=== PATIENT | female | born 1970 | race Caucasian/White ===

== ENCOUNTER 2024-11-23 13:52 | Inpatient (IN) | payer MEDICARE, OTHER, SELFPAY ==
[2024-11-23] VITALS (8 sets, daily range): BP systolic 102–138; BP diastolic 62–122
--- NOTE | 2024-11-23 07:45 | ED.GENMED ---
History of Present Illness
General
Chief Complaint: Abdominal Pain
Source: patient
Exam Limitations: none
Time Seen by Provider: 11/23/24 07:30
Nursing documentation reviewed up to this point in time: agreed with
History of Present Illness
History of Present Illness:
54-year-old female presenting from nursing facility with concerns of right upper quadrant abdominal pain since last night with associated vomiting. Also has had abdominal distention. Feels like she may be backed up with stool. Had a history of 2
C-sections and previous hernia repair. Denies any specific chest pain shortness of breath fevers.
Past History
Past History
ED Past Medical History: Other (Osteoarthritis)
Social History
Tobacco: Non-smoker
Review of Systems
Review of Systems
Allergies reviewed?: Yes
All Other Systems: ROS reviewed and negative except as documented in HPI and ROS
Phy Exam
Physical Exam
Physical Exam:
GENERAL: Alert , in no apparent distress
EYE: pupils equal and reactive
NECK: Supple, no significant adenopathy.
ENT: o/p clr, mmm.
CARDIAC: Regular rate and rhythm .
LUNGS: Clear breath sounds bilaterally, no acute respiratory distress, no wheezes/rales/rhonchi
ABDOMEN: Diffusely tender distended abdomen
NEUROLOGICAL: Alert and oriented, no focal neuro deficits
SKIN: Warm and dry, skin intact.
MUSCULOSKELETAL: No edema, well perfused.
PSYCH: Normal and appropriate interaction.
Course
Orders/Labs/Results
Orders:
Orders
11/23/24 07:31
Electrocardiogram (*1) Urgent
Reason for Study: Abdominal Pain
11/23/24 07:32
EKG- Treatment ONCE
11/23/24 07:35
CMP [Comprehensive Metabolic Panel] Urgent
Complete Blood Count/With Diff Urgent
Lipase Urgent
11/23/24 07:38
Add On- LAB Urgent
Tests Added?: lipase
11/23/24 07:43
CT Abd/Pel (IV only)-DH only Urgent
Comment:
Reason For Exam: diffuse abd pain
Acetaminophen 1000MG/100Ml [Ofirmev] 1,000 mg in 100 ml IV ONCE
Acetaminophen IV Indication:: ED Narcotic History-ONCE
Ondansetron Injectable [Zofran] 4 mg IV NOW STA
11/23/24 09:01
HYDROmorphone [Dilaudid] 1 mg IV NOW STA
11/23/24 11:10
US Abdomen Complete/Upper Urgent
Comment:
Reason For Exam: ruq pain distended GB
11/23/24 13:02
Admit/Transfer Patient As Directed
Co-Sign Provider:
Level of Care: Inpatient admission
Assign to:: Medical/Surgical
Physician / Group: audra echavarria
Diagnosis: symptomatic bilary colic
Reason for Hospitalization: symptomatic biliary colic
Expected length of stay greater than two midnights?: Yes
ELOS- Estimated Length of Stay in days: 3
I certify the patient meets the requirements for IP care: Yes
PRN Pain Medication Management As Directed
May give lesser potent ordered pain med per pt: Yes
preference::
Protocol:: Medication orders for pain may be administered in a
manner that supports deferring to patient preference
when the pt is:
- Requesting an ordered lesser potent pain medication.
Least to most potent pain medications are defined
as: acetaminophen < NSAID < tramadol < opioids
(morphine, oxycodone, hydromorphone).
- Requesting a lesser dose of the same medication IF
ORDERED.
- Requesting a less intrusive route of administration
if both routes are prescribed by the provider (PO <
IV).
11/23/24 13:03
Code Status As Directed
Resuscitation Status: Full Code
Abnormal Lab Results
11/23/24
07:35
WBC 12.8 H 10^3/uL
(4.8-10.8)
MCHC 32.6 L g/dL
(33.0-37.0)
Absolute Neuts (auto) 11.1 H 10^3/uL
(1.4-6.5)
Absolute Lymphs (auto) 1.0 L 10^3/uL
(1.2-3.4)
Absolute Monos (auto) 0.7 H 10^3/uL
(0.1-0.6)
Neutrophils % 86.6 H %
(42.2-75.2)
Lymphocytes % 7.8 L %
(20.5-51.1)
BUN 18 H mg/dl
(7-17)
Glucose 153 H mg/dl
(70-99)
Alkaline Phosphatase 147 H U/L
(38-126)
11/23/24 07:35
11/23/24 07:35
Vital Signs
Initial and Last Documented VS:
Initial Vital Signs
BP
103/88
11/23/24 07:29
Last Documented Vital Signs
Temp Pulse Resp BP Pulse Ox
99 F 110 25 138/122 93
11/23/24 07:30 11/23/24 11:15 11/23/24 11:15 11/23/24 11:10 11/23/24 11:15
MDM/Problems Addressed
MDM/Problems Addressed:
54-year-old female presenting to the emergency department today with concerns of mainly right upper quadrant abd pain but on my examination diffuse abdominal pain with distention. Mildly tachycardic on arrival otherwise vital signs are normal.
Here concerning she has somewhat diffuse abdominal pain to start CT scan was ordered. CT scan showed gallbladder distention but no obvious wall thickening recommending ultrasound. Ultrasound performed that showed distention once again but no
obvious thick. Labs showed elevation in alk phos otherwise no emergent findings other than slight elevation of the white count of 12.8. The mildly tachycardic and still with ongoing pain despite opioid medication plan to admit for further
monitoring and assessment.
*Critical Care Note
Total Time (30-74mins, 75-104mins- exclusive of procedures): Not Applicable
ED Attending Note
-
Portions of this chart may have been created with voice recognition software.� Occasional wrong word or��sound alike� substitutions may have occurred due to the inherent limitations of voice recognition software.
Discharge Plan
Departure
Patient Disposition: Admit
Date of Disposition: 11/23/24
Time of Disposition: 13:58
Admit to: Med/Surg
Admit to doctor: Patiencey
Presentation/result/management discussed w/ accepting MD/DO: Hospitalist
Patient with high blood pressure during this ER visit?: No
Condition: Good
Covid-19: Not Applicable
Discharge Problem:
Abdominal pain, RUQ
Interventions
Interventions:
*Risk Screen - Suicide Last Done: 11/23/24 07:30
*General Assessment Last Done: 11/23/24 07:30
*Neglect/Abuse Screening Last Done: 11/23/24 07:30
*ED- Fall Risk Assessment Last Done: 11/23/24 07:53
*ED COVID-19 Vaccine History Last Done: 11/23/24 07:53
MP-Xpvrji-Jgomroxann Assessment Last Done: 11/23/24 07:53
[2024-11-23] MEDS: ZOFRAN 4 MG IV (07:47)
[2024-11-23] MEDS: OFIRMEV 100 IV (07:47)
[2024-11-23 08:07] LABS: ALT (SGPT) 19 U/L (0-35); AST (SGOT) 21 U/L (14-36); Albumin 4.3 g/dl (3.5-5.0); Alkaline Phosphatase 147 U/L (38-126); Blood Urea Nitrogen 18 mg/dl (7-17); Calcium 9.6 mg/dl (8.4-10.2); Carbon Dioxide 26 mmol/L (22-30); Chloride 106 mmol/L (98-107); Glucose 153 mg/dl (70-99); Potassium 3.7 mmol/L (3.5-5.1); Sodium 143 mmol/L (135-145); Total Bilirubin 0.6 mg/dl (0.2-1.3); Total Protein 6.8 g/dl (6.3-8.2); eGFR > 60.00
[2024-11-23 08:46] LABS: % Basophils 0.2 % (0-2); % Eosinophils 0.1 % (0-6); % Immature Granulocytes 0.2 % (0-0.5); % Lymphocytes 7.8 % (20.5-51.1); % Monocytes 5.1 % (1.7-9.3); % Neutrophils 86.6 % (42.2-75.2); Absolute Monocytes 0.7 10^3/uL (0.1-0.6); Absolute Neutrophils 11.1 10^3/uL (1.4-6.5); Hemoglobin 12.7 g/dL (12.0-16.0); Mean Corp Hgb Conc. 32.6 g/dL (33.0-37.0); Mean Corpuscular Hgb 30.2 pg (27.0-31.0); Mean Corpuscular Volume 92.9 fL (81.0-99.0); Mean Platelet Volume 9.6 fL (7.4-10.4); Nucleated Red Blood Cells % 0 %; Platelet Count 328 10^3/uL (130-400); Red Cell Dist. Width 13.6 % (11.5-14.5); White Blood Cell Count 12.8 10^3/uL (4.8-10.8)
[2024-11-23] MEDS: DILAUDID 1 MG IV (09:13)
[2024-11-23 11:54] LABS: Lipase 74 U/L (23-300)
--- NOTE | 2024-11-23 12:34 | HPS.HSE ---
Family Physician
-
Family Physician: Bry Nava, DO
Chief Complaint
-
abdominal pain
History of Present Illness
54-year-old female with PMH for hypothyroidism, right LE DVT presented with upper quadrant pain since Saturday. She was diagnosed with UTI and yeast infection on Saturday. she finished the course of Cipro. she was having abdominal pain since then but
she thought it could be from yeast and UTI. yesterday the pain got intense, worse with deep breath. yesterday she noticed distended abdomen and she vomited all night. denied fever, chills,chest pain, sob. denied QUINTANILLA, dizzy or syncope.denied dysuria
or hematuria.
CT with gallstones. patient received Tylenol, Dilaudid, Zofran in ER. admitting for further management.
Patient is from [facility]. she is getting physical therapy for her right hip pain
Medical History
Past Medical History
Past Medical History: Reports Other
Additional Past Medical History:
Hypothyroidism
Obesity
Depression
Past Surgical History: Reports Other
Additional Past Surgical History:
exploratory laparotomy, primary repair of umbical hernia
Tonsillectomy
Social History
Tobacco: Non-smoker
Alcohol: Occasional
Drug: None
Living: Other ([facility])
Family History
Family History: Not pertinent
Allergies / Home Medications
Allergies reflects when Allergies were last updated in [employer].
Home Medications with original date entered in [employer]
Allergy/Medication List:
Allergies
Allergy/AdvReac Type Severity Reaction Status Date / Time
No Known Allergies Allergy Verified 11/23/24 07:33
Home Medications
albuterol sulfate 90 mcg/actuation aerosol inhaler 2 puff inhalation R Q4HPRN PRN SOB, wheezing ##1 11/26/21
amlodipine 10 mg tablet 10 mg PO DAILY #30 tabs 11/26/21
apixaban 5 mg tablet (Eliquis) 5 mg PO BID #60 tabs 11/26/21
lisinopril 5 mg tablet 5 mg PO HS #30 tabs 11/26/21
oxycodone 5 mg tablet 5 mg PO Q4HPRN PRN breakthrough/severe pain #15 tabs 11/28/21
polyethylene glycol 3350 17 gram/dose oral powder 17 gm PO DAILY ##1 11/28/21
acetaminophen 325 mg tablet 650 mg (2 x 325 mg) PO Q4HPRN PRN mild pain #1 tab 12/01/21
ibuprofen 200 mg tablet 400 - 600 mg (2 - 3 x 200 mg) PO Q6HPRN PRN moderate pain #1 tab 12/01/21
Review of Systems
-
Constitutional: Reports No Symptoms
EENT: Reports No Symptoms
Respiratory: Reports No Symptoms
Cardiac: Reports No Symptoms
Abdomen/GI: Reports Abdominal Pain
: Reports No Symptoms
Musculoskeletal: Reports No Symptoms
Skin: Reports No Symptoms
Neurological: Reports No Symptoms
Endocrine: Reports No Symptoms
Hematologic/Lymphatic: Reports No Symptoms
Psych: Reports No Symptoms
Physical Exam
Vital Signs
Vital Signs
Temp Pulse Resp BP Pulse Ox
99 F 110 25 138/122 93
11/23/24 07:30 11/23/24 11:15 11/23/24 11:15 11/23/24 11:10 11/23/24 11:15
Physical Exam
General: Well Developed, Well Nourished and No Apparent Distress
HEENT: NormoCephalic, Moist mucous membranes and Atraumatic
Respiratory: Clear
Cardiac: S1/S2 and Regular Rhythm; No Murmur or Rub
GI: Soft, Non Tender, Non Distended and Normal Bowel Sounds; No Organomegaly
Rectal: Deferred by Provider
Musculoskeletal: No Clubbing, No Cyanosis and No Edema
Skin: No Rash
Neuro: AO x 3 and Nonfocal/grossly intact
Psych: Calm
Laboratory Results
-
11/23/24 07:35
11/23/24 07:35
Laboratory Results
Total Bilirubin 0.6 mg/dl (0.2-1.3) 11/23/24 07:35
AST 21 U/L (14-36) 11/23/24 07:35
ALT 19 U/L (0-35) 11/23/24 07:35
Alkaline Phosphatase 147 U/L (38-126) H 11/23/24 07:35
Lipase 74 U/L (23-300) 11/23/24 07:35
Data Reviewed
-
CT Scan: Report Reviewed by me
Lab Data: Labs Reviewed by me
Impression/Plan
-
# Right upper quadrant pain likely symptomatic biliary colic
- CT with Gallbladder is mildly distended. Multiple gallstones are seen within the gallbladder. No significant gallbladder wall thickening or adjacent inflammatory change. Acute cholecystitis is considered unlikely, however if clinically suspected,
right upper quadrant ultrasound may be helpful.
2. Mild fecal retention suggestive of constipation. No CT evidence of intestinal obstruction.
3. Left-sided nephrolithiasis without hydronephrosis. Stones have increased in size compared to prior CT dated 11/21/2021.
- Ultrasound shows Multiple gallstones are seen within the gallbladder neck. Gallbladder is mildly dilated. No significant gallbladder wall thickening, and negative sonographic Gunn's sign. Overall, findings are not suggestive of acute
cholecystitis, however symptomatic biliary colic may still be present. HIDA scan may be helpful if the diagnosis is in doubt clinically.
2. No biliary ductal dilation.
3. Pancreas, spleen, and abdominal vessels were not visualized due to overlying bowel gas, however were within normal limits on today's CT.
- WBCs 12.8
-Will keep patient n.p.o.
-Surgery consulted
-Dilaudid as needed for pain
-Zofran prn for N/V
#DVT right LE
-hold eliquis
-last dose last night
#Hypothyroidism
-Synthroid continued
#anxiety/ADD
-Wellbutrin,amitriptyline continued
#neuropathy/right hip pain
-gabapentin,Flexeril continued
-PT/OT
#essential htn
-losartan continued with hold parameter
#GERD
-PPI continued
#DVT prophylaxis
-scd
#CODE status
-full code
--- NOTE | 2024-11-23 13:00 | W.PN.UPDATE ---
Update Note
Progress Note Update
This note serves as an addendum to the H&P by new accounts clerk RAHEEM Corinna IGLESIAS
HPI
54F [facility] at [facility], HX HX incarcerated hernia repair , post op DVT seen at ER for concerns of RUQ abdominal pain for 1 week , vomited this AM with abdominal distention prompted to evalaute at ER. HX recent UTI s/p ciprofloxacin. may be backed up
with stool.
HX 2 C-sections and previous hernia repair.
Denies any specific chest pain shortness of breath fevers.
Reviewed VS:
Selected VSS
11/23/24
07:30
Temp 99 F
Pulse 100
Resp Rate 18
Blood pressure 103/88
SaO2 97
Oxygen Mode of Delivery Room air
Laboratory Tests
11/23/24
07:35
WBC 12.8 H
BUN 18 H
Creatinine 0.7
eGFR > 60.00
Glucose 153 H
AST 21
ALT 19
Alkaline Phosphatase 147 H
Lipase 74
PE
Gen: Not toxic , obese
HEENT:anicteric, dry OM , lips and tougue
Neck:supple
Lungs:CTA
Cor:RRR
Abdomen: Tender RHC with deep palpation , No guarding
EMAIL OPERATIONS MANAGER: AAO3
MS:no edema , dry slin at [facility]
Psych:nl mood and affect
US Abdomen Complete/Upper
1. Multiple gallstones are seen within the gallbladder neck.
Gallbladder is mildly dilated.
No significant gallbladder wall thickening, and negative sonographic Gunn's sign.
Overall, findings are not suggestive of acute cholecystitis, however symptomatic biliary colic may still be present. HIDA scan may be helpful if the diagnosis is in doubt clinically.
2. No biliary ductal dilation.
3. Pancreas, spleen, and abdominal vessels were not visualized due to overlying bowel gas, however were within normal limits on today's CT.
CT Abd/Pel (IV only)-DH only
1. Gallbladder is mildly distended.
Multiple gallstones are seen within the gallbladder.
No significant gallbladder wall thickening or adjacent inflammatory change.
Acute cholecystitis is considered unlikely, however if clinically suspected, right upper quadrant ultrasound may be helpful.
2. Mild fecal retention suggestive of constipation. No CT evidence of intestinal obstruction.
3. Left-sided nephrolithiasis without hydronephrosis. Stones have increased in size compared to prior CT dated 11/21/2021.
ASSESSMENT & PLAN
Symptomatic biliary colic with NEG sono evidence for acute cholecystitis
[place] [facility] [place] dilation
- nl LFTs, nl Lipase
- associated leucocytosis
- Hold Eliquis - last dose was last night
- NPO and IVF NS 80/H
- PRN Dilaudid analgesia
- PRN anti emetics
- GS consulted ; not indicated for HIDA
Recent UTI at [facility]
S/P PO Cipro floxacin
Benign HTN
- c/w Amlodipine , Lisinopril
Mild fecal retention suggestive of constipation but had nl BM this am
No CT evidence of intestinal obstruction.
- To consider laxatives pending Surgery evalaution
HX eliquis for HX post op Rt April DVT following repair of incarcerated hernia ( 2021)
- Hold Eliquis
DVT Px: SCD
Full code
IP MS
--- NOTE | 2024-11-23 13:00 | PHANOTE ---
med rec note- called patient [facility] at [phone], paperwork missing medication list just a blank sheet
--- NOTE | 2024-11-23 13:26 | CON.GS ---
Addendum entered and electronically signed by Bry Sultana MD 11/23/24 17:07:
I saw and examined the patient independently.
The resident's documentation was reviewed and I agree with the note, assessment and plan except where noted below.
Comment: This is a 54-year-old female with a history of morbid obesity, DVT (on Eliquis last dose last night), osteoarthritis, strangulated umbilical hernia s/p primary repair (2021) who presents with a 1 day history of right upper quadrant pain in
the setting of a recent UTI. Exam, imaging, blood work all consistent with acute cholecystitis.
Will plan for laparoscopic cholecystectomy in 24 to 48 hours for Eliquis washout. Given obesity, would prefer a robotic approach.
Okay for clears, IV fluids, IV antibiotics.
Risks/Benefits/Alternatives, expected postoperative course and possible complications (bleeding, infection, injury to surrounding structures, acute/chronic pain) discussed at length. Patient wishes to proceed with surgery. All questions answered.
Verbal consent obtained.
I spent 65 minutes in total for the care of this patient today including direct patient care and counseling, reviewing labs, imaging, coordination of care, as well as documentation.
Original Note:
Medical History
-
Chief Complaint: Abdominal pain
History of Present Illness:
64-year-old female with history of obesity, DVT 2019, osteoarthritis, hypothyroidism, depression as well as ADD, strangulated umbilical hernia status post repair 11/2021, peripheral neuropathy, right-sided breast cyst presents to ED with nausea,
vomiting, abdominal pain. On 11/14, patient started to have lower abdominal pain. UA revealed UTI. She was started on Cipro floxacillin by MANAGER CASE. Lower ab pain improved as well as burning with urination, however her upper abdominal pain persisted
with more persistent pain in RUQ and started to radiate into the lower back. Last night, after eating hot dog, patient noticed severe right upper quadrant pain with subsequent nausea and vomiting. The vomiting continued overnight to which point she
decided to come into the ED. She denies any fevers, chills, diarrhea. Her last bowel was yesterday. She has been trying to lose weight and has lost about 40 pounds over the last year.
In the ED, blood pressure 108/97, heart rate 110, respiratory rate 25, O2 saturation 93% on room air, temp 99 Fahrenheit. Alk phos 127, WBC 12.8 with left shift. Abdomen/pelvis CT revealed mildly distended goal bladder with multiple gallstones
without signs of acute cholecystitis. Follow-up abdominal ultrasound revealed similar findings. She received Zofran, hydromorphone and IV acetaminophen in the ED. General surgery was consulted for evaluation of biliary colic, cholelithiasis,
suspected acute cholecystitis.
Past Medical History
Past Medical History: Other (DVT, osteoarthritis, hypothyroidism, depression, ADD, peripheral neuropathy, Breast cyst)
Past Surgical History: Other (Exploratory laparotomy with umbilical hernia repair/2021, times 09/1999, tonsillectomy)
Social History
Tobacco: Non-Smoker
Alcohol: Occasional
Drug: None
Personal:
Living: Assisted Living
Family History
Family History: Other (Paternal grandmother breast cancer)
Allergies / Home Medications
Allergy/AdvReac Type Severity Reaction Status Date / Time
No Known Allergies Allergy Verified 11/23/24 07:33
�Medication �Instructions �Recorded �Confirmed �Type
albuterol sulfate 90 mcg/actuation 2 puff inhalation R Q4HPRN PRN 11/26/21 Rx
aerosol inhaler SOB, wheezing ##1
amlodipine 10 mg tablet 10 mg PO DAILY #30 tabs 11/26/21 Rx
apixaban 5 mg tablet (Eliquis) 5 mg PO BID #60 tabs 11/26/21 Rx
lisinopril 5 mg tablet 5 mg PO HS #30 tabs 11/26/21 Rx
oxycodone 5 mg tablet 5 mg PO Q4HPRN PRN 11/28/21 Rx
breakthrough/severe pain #15 tabs
polyethylene glycol 3350 17 17 gm PO DAILY ##1 11/28/21 Rx
gram/dose oral powder
acetaminophen 325 mg tablet 650 mg (2 x 325 mg) PO Q4HPRN PRN 12/01/21 Rx
mild pain #1 tab
ibuprofen 200 mg tablet 400 - 600 mg (2 - 3 x 200 mg) PO 12/01/21 Rx
Q6HPRN PRN moderate pain #1 tab
Review of Systems
-
History Source: Patient
EENT: No Symptoms
Respiratory: No Symptoms
Cardiac: No Symptoms
Abdomen/GI: Abdominal Pain
: No Symptoms
Neurological: No Symptoms
A 10 point review of systems was completed, and was negative except as per HPI.
Physical Exam
Vital Signs
Temp Pulse Resp BP Pulse Ox
99 F 110 25 138/122 93
11/23/24 07:30 11/23/24 11:15 11/23/24 11:15 11/23/24 11:10 11/23/24 11:15
11/22/24 11/23/24 11/24/24
06:59 06:59 06:59
Actual Weight 129.1 kg
Lab Results
11/23/24 07:35
11/23/24 07:35
WBC 12.8 10^3/uL (4.8-10.8) H 11/23/24 07:35
Hgb 12.7 g/dL (12.0-16.0) 11/23/24 07:35
Hct 39.0 % (37.0-47.0) 11/23/24 07:35
Plt Count 328 10^3/uL (130-400) 11/23/24 07:35
Abs Immat Gran (auto) 0.0 10^3/uL (0-0.05) 11/23/24 07:35
Neutrophils % 86.6 % (42.2-75.2) H 11/23/24 07:35
Physical Exam
General: No Apparent Distress
Respiratory: Clear
Cardiac: S1/S2 and Regular Rhythm
GI: Tender, Distended and Obese
Skin: Warm and Dry
Neuro: AO x 3
Assessment / Plan
-
54 y/o female presents with acute cholecystitis.
AFVSS
Ab distended, tender, tympanic, grewal (+), normal bowel sounds
Healed surgical scar from umbilical hernia repair midline
#Acute cholecystitis
--WBC 12.8 with left shift, tenderness with palpation, grewal (+), imaging consistent with cholelithiasis, enlarged gallbladder
--Last dose of Eliquis last night 7pm
--Plan for OR tmrw
--Zosyn
--Fluids
--Allow clears as not currently nauseous, NPO at midnight
[2024-11-23] MEDS: ZOSYN 100 IV (15:24)
[2024-11-23] MEDS: NSS 1000 IV (17:30)
[2024-11-23] MEDS: TYLENOL 650 MG PO (17:31)
--- NOTE | 2024-11-23 18:06 | PTCARENOTE ---
Pt admitted to [facility] from ED, pulled over from stretcher to bed. AAOx3. Pt febrile with T 100.4, PRN tylenol given. Oriented pt to room and plan of care. Call giron within reach.
[2024-11-23] MEDS: DILAUDID 0.5 MG IV (18:14)
[2024-11-23] MEDS: LAC HYDRIN, AM LACTIN LOTION 1 APPLIC TOPICAL (20:07)
[2024-11-23] MEDS: NEURONTIN 300 MG PO (20:07)
[2024-11-23] MEDS: PROTONIX 40 MG PO (21:40)
[2024-11-23] MEDS: FLEXERIL 10 MG PO (21:40)
[2024-11-23] MEDS: LIPITOR 10 MG PO (21:40)
[2024-11-23] MEDS: SYNTHROID 12.5 MCG PO (21:40)
[2024-11-23] MEDS: ZOSYN 50 IV (21:41)
[2024-11-24] MEDS: ZOSYN 50 IV ×4 (04:26→21:33)
[2024-11-24] MEDS: DILAUDID 0.5 MG IV ×3 (06:06→21:33)
[2024-11-24 07:40] VITALS: BP 92/72
[2024-11-24] MEDS: NEURONTIN 300 MG PO ×2 (07:51→19:55)
[2024-11-24] MEDS: NSS 1000 IV ×2 (07:51→19:55)
[2024-11-24] MEDS: WELLBUTRIN XL (24 hour extended release) 150 MG PO (07:52)
[2024-11-24] MEDS: ELAVIL 5 MG PO (07:52)
[2024-11-24] MEDS: COZAAR PO (07:52)
[2024-11-24] MEDS: LAC HYDRIN, AM LACTIN LOTION 1 APPLIC TOPICAL (07:54)
--- NOTE | 2024-11-24 08:28 | W.PN.HOSP.TC ---
Addendum entered and electronically signed by Zeyad Otoole MD 11/24/24 21:30:
Attending Addendum-
I saw and evaluated the patient. I reviewed the resident�s note and agree with findings and plan as documented in the resident�s note. Sub: febril and tachycardic overnight. Patient continues to have RUQ rad to back and epigastric area. Denies N/V.
Full 12 point ROS reviewed and negative except as documented Exam: Vitals reviewed in chart GEN-NAd heart RRR lungs clear abd obese TTP RUQ
Plan:
# Sepsis secondary to ACC
- CT 11/23-Gallbladder is mildly distended. Multiple gallstones are seen within the gallbladder. No significant gallbladder wall thickening or adjacent inflammatory change. Acute cholecystitis is considered unlikely no biliary duct dilation
-Mild fecal retention suggestive of constipation
-Left-sided nephrolithiasis without hydronephrosis. Stones have increased in size compared to prior CT dated 11/21/2021.
- RUQ US-shows Multiple gallstones are seen within the gallbladder neck. Gallbladder is mildly dilated. No significant gallbladder wall thickening, and negative sonographic Gunn's sign. Overall, findings are not suggestive of acute cholecystitis
- cont CLD for now
- n.p.o. pMN
- for OR in am - rCCY with cholangiogram
- cont Zosyn day #2
- t bili now elevated
- hold eliquis
#H/O DVT right LE
-hold eliquis
-last dose 11/22
#Hypothyroidism
-Synthroid continued
#anxiety/ADD
-Wellbutrin,amitriptyline continued
#neuropathy/right hip pain
-gabapentin,Flexeril continued
-PT/OT
#essential htn
-losartan continued with hold parameter
#GERD
-PPI continued
#DVT prophylaxis
-scd (eliquis on hold)
#CODE status
-full code
Dispo patient coming from [facility] but does not want to return there- PT OT CM aware
ACP
Patient consented to discuss, was alone, time spent explanation of advance directives, changes in health status, patient�s health care wishes if the patient becomes unable to make health decisions, goals of care, code status, and prognosis 'yes im a
full code'- 16 minutes
Time spent coordinating care, review of plan of care with resident, personally reviewed previous records in EMR, med rec, labs, radiology, d/w nursing, family total time documented is exclusive of any additional time listed that was spent in advance
care planning discussion -�52 minutes
Original Note:
Today's Communication/Plan
-
c/t hold eliquis
robotic lap choly tomorrow
c/w abx
observe blood cultures
Assessment / Plan
Assessment / Plan
54 year old female presenting with RUQ pain, N/V x1 day
#RUQ Pain, likely biliary colic
#Possible sepsis, biliary source
- Leukocytosis 12.8, 100.4F, Tachycardic 117, tachypneic 18
- Abd US -- Overall, findings are not suggestive of acute cholecystitis
- CT Abd/pel -- gallbladder distention with no significant GB thickening or adjacent inflammatory changes; unlikely acute cholecystitis
- Blood Cx ordered
- Started on Zosyn
- Planning for robotic lap choly tomorrow
- Dilaudid/Zofran prn
#H/o RLE DVT
- holding Eliquis, last dose was 11/22/24 HS
#Hypothyroidism - c/w levothyroxine
#Anxiety/ADHD - c/w Wellbutrin, amitriptyline
#Neuropathy
#Right Hip Pain
- c/w gabapentin, Flexeril
- pending PT/OT consult
#Essential Hypertension - c/w losartan
#GERD - c/w Protonix
Diet: NPO
DVT PPx: holding eliquis as above
Code Status: Full Code
IMAGING
CT Abd/Pel (IV only)-DH only:
1. Gallbladder is mildly distended. Multiple gallstones are seen within the gallbladder. No significant gallbladder wall thickening or adjacent inflammatory change. Acute cholecystitis is considered unlikely, however if clinically suspected, right
upper quadrant ultrasound may be helpful.
2. Mild fecal retention suggestive of constipation. No CT evidence of intestinal obstruction.
3. Left-sided nephrolithiasis without hydronephrosis. Stones have increased in size compared to prior CT dated 11/21/2021.
US Abdomen Complete/Upper:
1. Multiple gallstones are seen within the gallbladder neck. Gallbladder is mildly dilated. No significant gallbladder wall thickening, and negative sonographic Gunn's sign. Overall, findings are not suggestive of acute cholecystitis, however
symptomatic biliary colic may still be present. HIDA scan may be helpful if the diagnosis is in doubt clinically.
2. No biliary ductal dilation.
3. Pancreas, spleen, and abdominal vessels were not visualized due to overlying bowel gas, however were within normal limits on today's CT.
Anticipated Discharge: 24 - 48 hours
Subjective/Interval History
-
Date of Service: November 24, 2024
Feeling better this morning, no new vomiting. Pain still present but improved and managed with Dilaudid. has fevers but no chills. No other abd, urinary or cardiopulmonary sx.
Objective Data
-
Labs:
Laboratory Results
11/24/24
06:41
WBC Pending
Hgb Pending
Hct Pending
Plt Count Pending
Vital Signs:
Vital Signs
Temp Pulse Resp BP Pulse Ox
100.2 F 104 18 92/72 94
11/24/24 07:40 11/24/24 07:40 11/24/24 07:40 11/24/24 07:52 11/24/24 07:40
I&O
11/23/24 11/24/24 11/25/24
06:59 06:59 06:59
Intake Total 240 / 240
Balance 240 / 240
Review of Systems
-
History Source: Patient
Constitutional: Reports Fever; Denies Fatigue, Night Sweats or Chills
EENT: Reports No Symptoms Reported
Respiratory: Reports No Symptoms
Cardiac: Reports No Symptoms
Abdomen/GI: Reports Abdominal Pain; Denies Nausea, Vomiting, Diarrhea or Constipated
Breast: Reports No Symptoms
Genitourinary: Reports No Symptoms
Musculoskeletal: Reports No Symptoms
Neuro: Reports No Symptoms
Physical Exam
-
General: Well Developed, Well Nourished, No Apparent Distress, Comfortable and Morbidly Obese
HEENT: Normocephalic, Atraumatic, Moist Mucous Membranes, Anicteric, [place] Conjunctivae, PERRLA, Nose Appears Normal and Ears Appear Normal
Respiratory: Clear to Auscultation; Negative Wheezes, Rales or Rhonchi
Cardiac: Regular Rhythm and S1/S2; Negative Murmur or Rub
Breast: Deferred by me
GI: Soft, Normal Bowel Sounds and Tender (RUQ)
Genito-urinary: No Costovertebral Tender
Musculoskeletal: No Clubbing, No Cyanosis and No Edema
Skin: Warm, Dry and IV Access / Catheter Site
Neuro: Awake, Alert and Oriented
Psych: Calm
[2024-11-24 08:52] LABS: Hemoglobin 11.6 g/dL (12.0-16.0); Mean Corp Hgb Conc. 32.2 g/dL (33.0-37.0); Mean Corpuscular Hgb 30.1 pg (27.0-31.0); Mean Corpuscular Volume 93.3 fL (81.0-99.0); Platelet Count 258 10^3/uL (130-400); Red Blood Cell Count 3.86 10^6/uL (4.20-5.40); Red Cell Dist. Width 13.8 % (11.5-14.5); White Blood Cell Count 10.4 10^3/uL (4.8-10.8)
[2024-11-24 10:17] LABS: ALT (SGPT) 18 U/L (0-35); AST (SGOT) 21 U/L (14-36); Alkaline Phosphatase 125 U/L (38-126); Blood Urea Nitrogen 16 mg/dl (7-17); Calcium 9.1 mg/dl (8.4-10.2); Carbon Dioxide 24 mmol/L (22-30); Chloride 103 mmol/L (98-107); Estimated Creatinine Clearance 112 ml/min; Glucose 101 mg/dl (70-99); Potassium 3.7 mmol/L (3.5-5.1); Sodium 139 mmol/L (135-145); Total Bilirubin 1.5 mg/dl (0.2-1.3); Total Protein 6.3 g/dl (6.3-8.2); eGFR > 60.00
[2024-11-24 10:50] LABS: Lactic Acid 1.4 mmol/L (0.7-2.0)
[2024-11-24 11:45] VITALS: BP 111/61; PULSE 103; O2SAT 95
--- NOTE | 2024-11-24 12:59 | W.PN.GS2 ---
Today's Communication / Plan
-
OR tomorrow am
Assessment / Plan
-
54F with ACC
Plan for OR tomorrow for rCCY with cholangiogram after eliquis washout
Procedure discussed with patient. All ?s answered.
She is on the schedule for 8AM tomorrow.
CLD until MN, NPO after that
Subjective Data
-
Date of Service: November 24, 2024
Slowly improving, pain better, hungry
Objective Data
-
Intake and Output
11/23/24 11/24/24 11/25/24
06:59 06:59 06:59
Intake Total 240 / 240 960 / 960
Balance 240 / 240 960 / 960
Intake:
Oral fluids 240 / 240 960 / 960
Other:
How many times incontinent 1
SATURATED amount urine
Vital Signs
Temp Pulse Resp BP Pulse Ox
100.2 F 104 18 92/72 94
11/24/24 07:40 11/24/24 07:40 11/24/24 07:40 11/24/24 07:52 11/24/24 08:00
Lab Results
11/24/24 06:41
11/24/24 09:17
Calcium 9.1 mg/dl (8.4-10.2) 11/24/24 09:17
Total Bilirubin 1.5 mg/dl (0.2-1.3) H 11/24/24 09:17
AST 21 U/L (14-36) 11/24/24 09:17
ALT 18 U/L (0-35) 11/24/24 09:17
Alkaline Phosphatase 125 U/L (38-126) 11/24/24 09:17
Total Protein 6.3 g/dl (6.3-8.2) 11/24/24 09:17
Albumin 4.0 g/dl (3.5-5.0) 11/24/24 09:17
Physical Exam
-
Gen: NAd
Abd: obese, soft, mild ttp RUQ
Patient has a bledsoe catheter: No
Patient has a central line: No
[2024-11-24 14:48] VITALS: BP 91/65
--- NOTE | 2024-11-24 15:13 | CM ---
Patient seen bedside, initial assessment completed. Patient is a 54-year-old female with PMH for hypothyroidism, right LE DVT presented with upper quadrant pain since Saturday. Patient was found w/ gallstones and plan is for OR tomorrow. Patient
admitted from [facility] as she was there for STR for weakness.
Patient reports that she resides w/ spouse in a newly 1st ilr apartment- 1 step to enter. Patient primarily uses WC for ambulation, independent w/ ADLs, no other DME identified. Patient stated she has to see what other DME she is eligible for.
Patient stated she plans to have home health aides and spoke w/ someone last week to begin to arrange for this. Patient unable to recall agency aides will be through.
Address, point of contact and insurance verified
PCP: Bry Nava
Pharmacy: [facility]
Therapy assessed patient and is determining SNF vs home w/ 24 hr care. Per therapy assessment, patient is wanting to d/c home if able
Plan: Home vs SNF
--- NOTE | 2024-11-24 17:04 | W.PN.UPDATE ---
Update Note
Progress Note Update
This note serves as an addendum to the H&P by calculating machine mechanic RAHEEM Corinna IGLESIAS
HPI
54F [facility]F at [facility], HX HX incarcerated hernia repair , post op DVT seen at ER for concerns of RUQ abdominal pain for 1 week , vomited this AM with abdominal distention prompted to evalaute at ER. HX recent UTI s/p ciprofloxacin. may be backed up
with stool.
HX 2 C-sections and previous hernia repair.
Denies any specific chest pain shortness of breath fevers.
Reviewed VS:
11/23/24
07:30
Temp 99 F
Pulse 100
Resp Rate 18
Blood pressure 103/88
SaO2 97
Oxygen Mode of Delivery Room air
Laboratory Tests
11/23/24
07:35
WBC 12.8 H
BUN 18 H
Creatinine 0.7
eGFR > 60.00
Glucose 153 H
AST 21
ALT 19
Alkaline Phosphatase 147 H
Lipase 74
PE
Gen: Not toxic , obese
HEENT:anicteric, dry OM , lips and tougue
Neck:supple
Lungs:CTA
Cor:RRR
Abdomen: Tender RHC with deep palpation , No guarding
MACHINE TOOL OPERATOR: AAO3
MS:no edema , dry slin at [facility]
Psych:nl mood and affect
US Abdomen Complete/Upper
1. Multiple gallstones are seen within the gallbladder neck.
Gallbladder is mildly dilated.
No significant gallbladder wall thickening, and negative sonographic Gunn's sign.
Overall, findings are not suggestive of acute cholecystitis, however symptomatic biliary colic may still be present. HIDA scan may be helpful if the diagnosis is in doubt clinically.
2. No biliary ductal dilation.
3. Pancreas, spleen, and abdominal vessels were not visualized due to overlying bowel gas, however were within normal limits on today's CT.
CT Abd/Pel (IV only)-DH only
1. Gallbladder is mildly distended.
Multiple gallstones are seen within the gallbladder.
No significant gallbladder wall thickening or adjacent inflammatory change.
Acute cholecystitis is considered unlikely, however if clinically suspected, right upper quadrant ultrasound may be helpful.
2. Mild fecal retention suggestive of constipation. No CT evidence of intestinal obstruction.
3. Left-sided nephrolithiasis without hydronephrosis. Stones have increased in size compared to prior CT dated 11/21/2021.
ASSESSMENT & PLAN
Symptomatic biliary colic with NEG sono evidence for acute cholecystitis
Mildly dilated [place] with [place] [facility] [place]
No biliary dilation
- nl LFTs, nl Lipase
- associated leucocytosis
- Hold Eliquis - last dose was last night
- NPO and IVF NS 80/H
- PRN Dilaudid analgesia
- PRN anti emetics
- GS consulted ; not indicated for HIDA
Recent UTI at [facility]
S/P PO Ciprofloxacin
Benign HTN
- c/w Amlodipine , Lisinopril
Mild fecal retention suggestive of constipation but had nl BM this am
No CT evidence of intestinal obstruction.
- To consider laxatives pending Surgery evalaution
HX eliquis for HX post op Rt April DVT following repair of incarcerated hernia ( 2021)
- Hold Eliquis
DVT Px: SCD
Full code
IP MS
[2024-11-24] MEDS: FLEXERIL 10 MG PO (21:34)
[2024-11-24] MEDS: SYNTHROID 12.5 MCG PO (21:34)
[2024-11-24] MEDS: PROTONIX 40 MG PO (21:34)
[2024-11-24] MEDS: LIPITOR 10 MG PO (21:34)
[2024-11-24] MEDS: LAC HYDRIN, AM LACTIN LOTION TOPICAL (21:48)
[2024-11-24] MEDS: TYLENOL 650 MG PO (23:01)
[2024-11-24 23:28] VITALS: BP 107/56
--- NOTE | 2024-11-24 23:31 | PTCARENOTE ---
fever medicated with prn Tylenol- chg bath given- pt npo at 0000
[2024-11-25] VITALS (10 sets, daily range): BP systolic 101–140; BP diastolic 55–100
[2024-11-25] MEDS: ZOSYN 50 IV ×4 (03:32→21:37)
[2024-11-25] MEDS: DILAUDID 0.5 MG IV (05:00)
[2024-11-25] MEDS: ELAVIL PO (07:14)
[2024-11-25] MEDS: NEURONTIN PO (07:14)
[2024-11-25] MEDS: COZAAR PO (07:14)
[2024-11-25] MEDS: LAC HYDRIN, AM LACTIN LOTION TOPICAL (07:14)
[2024-11-25] MEDS: WELLBUTRIN XL (24 hour extended release) PO (07:15)
--- NOTE | 2024-11-25 07:17 | W.PN.HOSP.TC ---
Addendum entered and electronically signed by Zeyad Otoole MD 11/25/24 21:40:
Attending Addendum-
I saw and evaluated the patient. I reviewed the resident�s note and agree with findings and plan as documented in the resident�s note. Sub: febrile overnight. Seen post op. mild pain, passing gas no BM yet. Feels 'groggy' Denies N/V. Full 12 point
ROS reviewed and negative except as documented Exam: Vitals reviewed in chart GEN-CHANTAL heart RRR lungs clear abd obese ND pos BS lap michelle incision CDI x 3 Neuro AAox3
Plan:
# Sepsis secondary to ACC
- 11/25- s/p Robot assisted laparoscopic cholecystectomy with cholangiogram - Dr. Caballero- POD # 0
- restart diet
- cont Zosyn for now
- restart eliquis 11/27 per surg
#H/O DVT right LE
-hold eliquis
-last dose 11/22
#Hypothyroidism
-Synthroid continued
#anxiety/ADD
-Wellbutrin,amitriptyline continued
#neuropathy/right hip pain
-gabapentin,Flexeril continued
-PT/OT
#essential htn
-losartan continued with hold parameter
#GERD
-PPI continued
#DVT prophylaxis
-scd (eliquis on hold)
#CODE status
-full code
Dispo patient coming from [place]- initially stated she wants to go home but now requesting to go back- DC in am
Time spent coordinating care, review of plan of care with resident, personally reviewed records in EMR, med rec, consults, notes, labs, radiology, d/w nursing � 52 mins
Original Note:
Today's Communication/Plan
-
Restart Eliquis 11/27
ADAT
Likely d/c tomorrow to SNF
Assessment / Plan
Assessment / Plan
54 year old female presenting with RUQ pain, N/V x1 day
#RUQ Pain, likely biliary colic
#Possible sepsis, biliary source
- Leukocytosis 12.8, 100.4F, Tachycardic 117, tachypneic 18
- Abd US -- Overall, findings are not suggestive of acute cholecystitis
- CT Abd/pel -- gallbladder distention with no significant GB thickening or adjacent inflammatory changes; unlikely acute cholecystitis
- Blood Cx ordered
- Started on Zosyn
- s/p lap choly today -- feeling well, uncomplicated surgery, no drain
- Dilaudid/Zofran prn
#H/o RLE DVT
- holding Eliquis, last dose was 11/22/24 HS
- Restart Eliquis 11/27
#Hypothyroidism - c/w levothyroxine
#Anxiety/ADHD - c/w Wellbutrin, amitriptyline
#Neuropathy
#Right Hip Pain
- c/w gabapentin, Flexeril
- PT/OT consult, recommending SNF
#Essential Hypertension - c/w losartan
#GERD - c/w Protonix
Diet: NPO
DVT PPx: holding eliquis as above
Code Status: Full Code
IMAGING
CT Abd/Pel (IV only)-DH only:
1. Gallbladder is mildly distended. Multiple gallstones are seen within the gallbladder. No significant gallbladder wall thickening or adjacent inflammatory change. Acute cholecystitis is considered unlikely, however if clinically suspected, right
upper quadrant ultrasound may be helpful.
2. Mild fecal retention suggestive of constipation. No CT evidence of intestinal obstruction.
3. Left-sided nephrolithiasis without hydronephrosis. Stones have increased in size compared to prior CT dated 11/21/2021.
US Abdomen Complete/Upper:
1. Multiple gallstones are seen within the gallbladder neck. Gallbladder is mildly dilated. No significant gallbladder wall thickening, and negative sonographic Gunn's sign. Overall, findings are not suggestive of acute cholecystitis, however
symptomatic biliary colic may still be present. HIDA scan may be helpful if the diagnosis is in doubt clinically.
2. No biliary ductal dilation.
3. Pancreas, spleen, and abdominal vessels were not visualized due to overlying bowel gas, however were within normal limits on today's CT.
Anticipated Discharge: Within 24 hours
Subjective/Interval History
-
Date of Service: November 25, 2024
POD0 robotic lap choly. Feeling well, no acute complaints. Pain and nausea controlled. No fevers or chills. Tolerating PO.
Objective Data
-
Labs:
Laboratory Results
11/25/24
07:16
WBC Pending
Hgb Pending
Hct Pending
Plt Count Pending
Sodium Pending
Potassium Pending
Chloride Pending
Carbon Dioxide Pending
BUN Pending
Creatinine Pending
Glucose Pending
Calcium Pending
Total Bilirubin Pending
AST Pending
ALT Pending
Alkaline Phosphatase Pending
Vital Signs:
Vital Signs
Temp Pulse Resp BP Pulse Ox
99.1 F 92 16 107/56 93
11/25/24 03:04 11/24/24 23:28 11/24/24 23:28 11/24/24 23:28 11/24/24 23:28
I&O
11/24/24 11/25/24 11/26/24
06:59 06:59 06:59
Intake Total 240 / 240 2460 / 2460
Balance 240 / 240 2460 / 2460
Review of Systems
-
History Source: Patient
Constitutional: Reports No Symptoms
EENT: Reports No Symptoms Reported
Respiratory: Reports No Symptoms
Cardiac: Reports No Symptoms
Abdomen/GI: Reports No Symptoms
Genitourinary: Reports No Symptoms
Musculoskeletal: Reports No Symptoms
Physical Exam
-
General: Well Developed, Well Nourished, No Apparent Distress, Comfortable and Morbidly Obese
HEENT: Normocephalic and Atraumatic
Respiratory: Clear to Auscultation; Negative Wheezes, Rales or Rhonchi
Cardiac: Regular Rhythm and S1/S2; Negative Murmur or Rub
GI: Soft, Nontender, Normal Bowel Sounds, Distended and Other (multiple laparoscopic port sites clean, dry, intact w/ surgical glue w/o surrounding erythema or drainage. )
Genito-urinary: Deferred by me
Musculoskeletal: No Clubbing, No Cyanosis and No Edema
Skin: Warm, Dry and IV Access / Catheter Site
Neuro: Awake, Alert and Oriented
[2024-11-25 08:53] LABS: Hematocrit 32.8 % (37.0-47.0); Hemoglobin 10.7 g/dL (12.0-16.0); Mean Corp Hgb Conc. 32.6 g/dL (33.0-37.0); Mean Corpuscular Hgb 30.2 pg (27.0-31.0); Mean Corpuscular Volume 92.7 fL (81.0-99.0); Mean Platelet Volume 9.6 fL (7.4-10.4); Platelet Count 216 10^3/uL (130-400); Red Blood Cell Count 3.54 10^6/uL (4.20-5.40); Red Cell Dist. Width 13.4 % (11.5-14.5); White Blood Cell Count 8.7 10^3/uL (4.8-10.8)
[2024-11-25 08:57] LABS: ALT (SGPT) 15 U/L (0-35); AST (SGOT) 19 U/L (14-36); Albumin 3.3 g/dl (3.5-5.0); Alkaline Phosphatase 103 U/L (38-126); Blood Urea Nitrogen 11 mg/dl (7-17); Calcium 8.5 mg/dl (8.4-10.2); Carbon Dioxide 24 mmol/L (22-30); Chloride 104 mmol/L (98-107); Estimated Creatinine Clearance > 125 ml/min; Glucose 88 mg/dl (70-99); Potassium 3.6 mmol/L (3.5-5.1); Sodium 138 mmol/L (135-145); Total Bilirubin 1.1 mg/dl (0.2-1.3); Total Protein 5.5 g/dl (6.3-8.2); eGFR > 60.00
--- NOTE | 2024-11-25 10:04 | W.IMMPOSTOP ---
Addendum entered and electronically signed by Emerson Caballero MD 11/25/24 13:30:
Daughter updated by phone. Reg diet ordered. Plan to restart eliquis 11/27.
Original Note:
Surgical Immed Post Op Note
-
Primary Surgeon: Ada
Assisting: Sea Garcia PGY-1
Pre-op Diagnosis: Acute calculous cholecystitis
Post-op Diagnosis: Same
Procedure Performed: Robot assisted laparoscopic cholecystectomy with cholangiogram
Anesthesia Type: GETA
Specimen / Cultures: Gallbladder
Estimated Blood Loss: 25cc
Complications: None immediate
Operative Findings: Tensely distended hydropic gallbladder with patchy gangrene, cholangiogram with good opacification of biliary tree and duodenum without filling defects (some bubbles are noted)
--- NOTE | 2024-11-25 10:30 | PTCARENOTE ---
Pt returned from OR. Pt drowsy but arousable. 6 lap sites on abdomen, glue dry/intact. Pt reoriented to room, call giron within reach, bed in lowest position. Will continue with current plan.
--- NOTE | 2024-11-25 13:23 | OR.RPT ---
Operative Report
Operative Report
Primary Surgeon: Ada
Assisting: Chay BURGOS, Ediasaadia PGY-1
Pre-op Diagnosis: Acute calculous cholecystitis
Post-op Diagnosis: Same
Procedure Performed: Robot assisted laparoscopic cholecystectomy with cholangiogram
Anesthesia Type: GETA
Specimen / Cultures: Gallbladder
Estimated Blood Loss: 25cc
Complications: None immediate
Operative Findings: Tensely distended hydropic gallbladder with patchy gangrene, cholangiogram with good opacification of biliary tree and duodenum without filling defects (some bubbles are noted)
Date of Surgery:� 11/25/24
Indications: This 54F developed acute calculous cholecystitis. Lab work showed elevated liver enzymes. 48 hours were allowed to elapse for eliquis washout. Laparoscopic cholecystectomy with robotic assist with cholangiogram was planned.
Description of procedure: The patient was placed on the operating table in the supine position. General anesthesia was induced. A time-out was completed verifying correct patient, procedure, site, positioning, and special equipment prior to
beginning this procedure. An orogastric tube was placed. The abdomen was prepped and draped in the usual sterile fashion. A stab incision was made in left upper quadrant and the Veress needle was inserted. Proper position was confirmed by aspiration
and saline meniscus test. The abdomen was insufflated with carbon dioxide to a pressure of 12mmHg. The patient tolerated insufflation well.
A 8mm trocar was then inserted above the umbilicus. The laparoscope was inserted and the abdomen inspected. No injuries from initial trocar placement or Veress needle insertion were noted. Additional 8mm trocars were then inserted in the following
locations: two in the right lower quadrant and to the left of the umbilicus and just above. The table was placed in the reverse Trendelenburg position with the right side up. The abdomen was inspected and no abnormalities were found. The colon was
distended and obscuring the gallbladder. It was gently swept inferiorly and held there without grasping it. The gallbladder was notably distended and hydropic. It was decompressed with a cyst aspiration needle. The dome of the gallbladder was
grasped with an atraumatic grasper and retracted over the dome of the liver. The infundibulum was then grasped with an atraumatic grasper and retracted toward the right lower quadrant. This maneuver exposed Calot�s triangle. The peritoneum overlying
the gallbladder infundibulum which was thick and friable and edematous was then incised swept inferiorly with blunt dissection until the cystic duct and cystic artery were identified and circumferentially dissected so that a clear view of the liver
was achieved through a window between the cystic duct an cystic artery. At this time, the only two structures going into the gallbladder were the cystic artery and cystic duct.
A anjelica was made in the cystic duct and a cholangiogram catheter was passed through a anjelica in the abdominal wall and threaded into the cystic duct and secured with a 2-0 silk tie. A cholangiogram was obtained that showed good opacification of the
biliary system and duodenum without filing defects. Some bubbles were noted. The catheter was withdrawn.
The cystic duct was then doubly clipped and divided. The cystic artery was controlled with bipolar and divided. The gallbladder was then dissected from its peritoneal attachments by electrocautery. The gallbladder was removed using an endoscopic
retrieval bag placed through the umbilical port. The gallbladder was passed off the table as a specimen. The gallbladder fossa was then thoroughly irrigated with warm sterile saline until effluent ran clear. There was no evidence of bleeding from
the gallbladder fossa or cystic artery or leakage of the bile from the cystic duct stump. The umbilical trocar site was closed at the fascial level with 2-0 PDS. Secondary trocars were removed under direct vision and noted to be hemostatic. The
abdomen was allowed to collapse. The skin was closed with subcuticular sutures of 4-0 monocryl and topical skin adhesive. The orogastric tube was removed.
The patient tolerated the procedure well and was taken to the postanesthesia care unit in stable condition.
The assistance of Sea PGY-1 was required due to the complexity of the procedure. During the procedure he assisted with retraction, resection, and closure of the wound.
[2024-11-25] MEDS: LIPITOR 10 MG PO (19:51)
[2024-11-25] MEDS: ROXICODONE 5 MG PO (19:51)
[2024-11-25] MEDS: SYNTHROID 12.5 MCG PO (19:51)
[2024-11-25] MEDS: PROTONIX 40 MG PO ×2 (19:51→19:53)
[2024-11-25] MEDS: FLEXERIL 10 MG PO (19:53)
[2024-11-25] MEDS: TYLENOL 650 MG PO (19:53)
[2024-11-25] MEDS: NEURONTIN 300 MG PO (19:53)
[2024-11-25] MEDS: LAC HYDRIN, AM LACTIN LOTION 1 APPLIC TOPICAL (21:37)
[2024-11-26 03:13] VITALS: BP 120/62
[2024-11-26] MEDS: ZOSYN 50 IV ×2 (03:54→09:03)
[2024-11-26 07:30] VITALS: BP 126/79
[2024-11-26] MEDS: NEURONTIN 300 MG PO (07:36)
[2024-11-26] MEDS: ELAVIL 5 MG PO (07:36)
[2024-11-26] MEDS: COZAAR 12.5 MG PO (07:37)
[2024-11-26] MEDS: WELLBUTRIN XL (24 hour extended release) 150 MG PO (07:38)
[2024-11-26] MEDS: LAC HYDRIN, AM LACTIN LOTION 1 APPLIC TOPICAL (07:39)
[2024-11-26] MEDS: ROXICODONE 5 MG PO ×2 (07:44→15:23)
[2024-11-26 08:02] LABS: Hematocrit 32.2 % (37.0-47.0); Hemoglobin 10.6 g/dL (12.0-16.0); Mean Corp Hgb Conc. 32.9 g/dL (33.0-37.0); Mean Corpuscular Hgb 30.1 pg (27.0-31.0); Mean Corpuscular Volume 91.5 fL (81.0-99.0); Mean Platelet Volume 9.9 fL (7.4-10.4); Platelet Count 216 10^3/uL (130-400); Red Blood Cell Count 3.52 10^6/uL (4.20-5.40)
--- NOTE | 2024-11-26 08:23 | W.PN.HOSP.TC ---
Addendum entered and electronically signed by Zeyad Otoole MD 11/26/24 22:51:
Attending Addendum-
I saw and evaluated the patient. I reviewed the resident�s note and agree with findings and plan as documented in the resident�s note. Sub: feels improved, ready to go to SNF. mild pain, passing gas. Denies N/V. Full 12 point ROS reviewed and
negative except as documented Exam: Vitals reviewed in chart GEN-CHANTAL heart RRR lungs clear abd obese ND pos BS lap michelle incision CDI x 3 Neuro AAox3
Plan:
# Sepsis secondary to ACC
- 11/25- s/p Robot assisted laparoscopic cholecystectomy with cholangiogram - Dr. Caballero- POD # 1
- restart diet
- restart eliquis 11/27 per surg
- ok to DC per surgery
#H/O DVT right LE
-restart eliquis 11/27
-last dose 11/22
#Hypothyroidism
-Synthroid continued
#anxiety/ADD
-Wellbutrin,amitriptyline continued
#neuropathy/right hip pain
-gabapentin,Flexeril continued
-PT/OT
#essential htn
-losartan continued with hold parameter
#GERD
-PPI continued
#DVT prophylaxis
-scd (eliquis on hold)
#CODE status
-full code
Dispo DC to [facility]
Time spent coordinating care, DC planning, review of DC plan of care with resident, transition of care, review of records, med rec/scripts sent electronically, consults, notes, d/w consultants, nursing, family, and CM� 32 mins
Original Note:
Today's Communication/Plan
-
likely d/c today to [facility]
Restart Eliquis 11/27/2024
Assessment / Plan
Assessment / Plan
54 year old female presenting with RUQ pain, N/V x1 day
#Acute cholecystitis, POD1 Lap Choly
#Possible sepsis, biliary source
- Leukocytosis 12.8 w/ left shift, 100.4F, Tachycardic 117, tachypneic 18
- Abd US -- Overall, findings are not suggestive of acute cholecystitis however clinical correlation recommended
- CT Abd/pel -- gallbladder distention with no significant GB thickening or adjacent inflammatory changes
- Clinical picture and exam consistent w/ diagnosis of acute cholecystitis independent of imaging
- Blood Cx NGTD
- stopped IV Abx
- POD1 lap choly today -- feeling well, tolerating diet, passing gas
- Dilaudid/Zofran prn
#H/o RLE DVT
- holding Eliquis, last dose was 11/22/24 HS
- Restart Eliquis 11/27
#Hypothyroidism - c/w levothyroxine
#Anxiety/ADHD - c/w Wellbutrin, amitriptyline
#Neuropathy
#Right Hip Pain
- c/w gabapentin, Flexeril
- PT/OT consult, recommending SNF
#Essential Hypertension - c/w losartan
#GERD - c/w Protonix
Diet: NPO
DVT PPx: holding eliquis as above
Code Status: Full Code
IMAGING
CT Abd/Pel (IV only)-DH only:
1. Gallbladder is mildly distended. Multiple gallstones are seen within the gallbladder. No significant gallbladder wall thickening or adjacent inflammatory change. Acute cholecystitis is considered unlikely, however if clinically suspected, right
upper quadrant ultrasound may be helpful.
2. Mild fecal retention suggestive of constipation. No CT evidence of intestinal obstruction.
3. Left-sided nephrolithiasis without hydronephrosis. Stones have increased in size compared to prior CT dated 11/21/2021.
US Abdomen Complete/Upper:
1. Multiple gallstones are seen within the gallbladder neck. Gallbladder is mildly dilated. No significant gallbladder wall thickening, and negative sonographic Gunn's sign. Overall, findings are not suggestive of acute cholecystitis, however
symptomatic biliary colic may still be present. HIDA scan may be helpful if the diagnosis is in doubt clinically.
2. No biliary ductal dilation.
3. Pancreas, spleen, and abdominal vessels were not visualized due to overlying bowel gas, however were within normal limits on today's CT.
Anticipated Discharge: Today
Subjective/Interval History
-
Date of Service: November 26, 2024
No acute complaints. Tolerating regular diet. Passing gas. No new fevers, chills, n/v/d/c.
Objective Data
-
Labs:
Laboratory Results
11/26/24
06:32
WBC 8.0
Hgb 10.6 L
Hct 32.2 L
Plt Count 216
Sodium Pending
Potassium Pending
Chloride Pending
Carbon Dioxide Pending
BUN Pending
Creatinine Pending
Glucose Pending
Calcium Pending
Total Bilirubin Pending
AST Pending
ALT Pending
Alkaline Phosphatase Pending
Vital Signs:
Vital Signs
Temp Pulse Resp BP Pulse Ox
97.4 F 72 16 120/62 98
11/26/24 03:13 11/26/24 03:13 11/26/24 03:13 11/26/24 03:13 11/26/24 03:13
I&O
11/25/24 11/26/24 11/27/24
06:59 06:59 06:59
Intake Total 2460 / 2460 1260 / 1260
Balance 2460 / 2460 1260 / 1260
Review of Systems
-
History Source: Patient
Constitutional: Reports No Symptoms
EENT: Reports No Symptoms Reported
Respiratory: Reports No Symptoms
Cardiac: Reports No Symptoms
Abdomen/GI: Reports No Symptoms
Genitourinary: Reports No Symptoms
Musculoskeletal: Reports No Symptoms
Physical Exam
-
General: Well Developed, Well Nourished, No Apparent Distress, Comfortable and Morbidly Obese
HEENT: Normocephalic, Atraumatic, Moist Mucous Membranes, Anicteric, [place] Conjunctivae, Nose Appears Normal and Ears Appear Normal
Respiratory: Clear to Auscultation; Negative Wheezes, Rales or Rhonchi
Cardiac: Regular Rhythm and S1/S2; Negative Murmur or Rub
GI: Soft, Nontender, Normal Bowel Sounds, Distended and Other (well appearing laparoscopic port sites with surgical glue, dry and intact)
Genito-urinary: Deferred by me
Musculoskeletal: No Clubbing, No Cyanosis and No Edema
Skin: Warm, Dry and IV Access / Catheter Site
Neuro: Awake, Alert and Oriented
Psych: Calm
[2024-11-26 08:45] LABS: ALT (SGPT) 22 U/L (0-35); AST (SGOT) 31 U/L (14-36); Albumin 3.2 g/dl (3.5-5.0); Alkaline Phosphatase 101 U/L (38-126); Blood Urea Nitrogen 12 mg/dl (7-17); Calcium 8.7 mg/dl (8.4-10.2); Carbon Dioxide 24 mmol/L (22-30); Chloride 105 mmol/L (98-107); Estimated Creatinine Clearance > 125 ml/min; Glucose 144 mg/dl (70-99); Potassium 3.4 mmol/L (3.5-5.1); Sodium 139 mmol/L (135-145); Total Bilirubin 0.6 mg/dl (0.2-1.3); Total Protein 5.4 g/dl (6.3-8.2); eGFR > 60.00
--- NOTE | 2024-11-26 10:10 | W.PN.SURGUPD ---
Surgical Update
Surgical Update
Patient seen and examined.
Reports postoperative incisional pain but preoperative cholecystitis pain resolved.
No nausea vomiting.
AFVSS
NAD AAO x 3, resting comfortably in bed
ABD: Soft, obese, mild tenderness to palpation in incision sites. Incision sites with glue dressings.
A/P: POD #1 status post robotic cholecystectomy with cholangiogram
Doing well postoperatively
Okay for discharge from surgical standpoint
[2024-11-26 10:43] VITALS: BP 116/77; PULSE 94; O2SAT 97
[2024-11-26 10:45] VITALS: BP 116/77; PULSE 92; O2SAT 98
--- NOTE | 2024-11-26 11:36 | CM ---
Per hospitalist, patient is wanting to return to [facility] to cont her therapy. Patient is stable to transfer to SNF today.
Referral placed to [facility], facility accepted today
Hospitalist and surg agreeable to d/c today
Updated therapy note sent to SNF via [facility]
Ambulance transport scheduled for 4 pm
Met w/ patient bedside, IMM verbally reviewed, patient given copy, copy placed on chart
[facility] SNF
Report: [phone] ASK FOR NURSE

Plan: Return to [facility] for STR
[2024-11-26 11:49] VITALS: BP 135/81
[2024-11-26 15:00] VITALS: BP 96/63
--- NOTE | 2024-11-26 17:06 | W.DCSUMMARY ---
Addendum entered and electronically signed by Zeyad Otoole MD 11/26/24 22:51:
Read, reviewed, and agree. See same day progress note for additional details.
Jad Otoole MD
Original Note:
Documented by User: Anthony Baker MD, Resident 11/26/24 18:40
Discharge Summary
Discharge Data
Date of Admission: 11/23/24
Date of Discharge: 11/26/24
Total time spent discharging patient (in min): >30m
-
Pending Results: No
Hospital Course
Discharging Physician : Dr. Anthony Baker, Dr. Zeyad Otoole
Disposition : SNF
Primary care physician : Dr. Bry Nava
Principal Discharge diagnosis : Acute Cholecystitis
Chronic Discharge diagnosis : History of RLE DVT, Hypothyroidism, Neuropathy, Right Hip Pain, Essential Hypertension, GERD
Hospital Course :
54 year old female presenting with RUQ pain, N/V x1 day
#Acute cholecystitis, POD1 Lap Cholecystectomy w/ intraoperative Cholangiogram
- Leukocytosis 12.8 w/ left shift, 100.4F, Tachycardic 117, tachypneic 18
- Clinical symptoms and exam consistent w/ diagnosis of acute cholecystitis.
- Blood Cx showed no growth x48 hours
- Initially given empiric abx Zosyn, stopped when negative blood Cx came back as negative
- Underwent uncomplicated robotic laparoscopic cholecystectomy. Given IV Dilaudid/Zofran prn.
- Tolerated regular diet post op and was cleared for discharge.
#H/o RLE DVT
- held Eliquis prior to surgery. No bleeding complications during surgery.
- OK to restart Eliquis on 11/27
#Hypothyroidism - continued on levothyroxine
#Anxiety/ADHD - continued on Wellbutrin, amitriptyline
#Neuropathy
#Right Hip Pain
- continued on gabapentin, Flexeril
- PT/OT consult obtained, recommending SNF.
#Essential Hypertension - continued on losartan. No acute hypertensive episodes.
#GERD - continued on Protonix.
Important imaging findings :
CT Abd/Pel (IV only):
1. Gallbladder is mildly distended. Multiple gallstones are seen within the gallbladder. No significant gallbladder wall thickening or adjacent inflammatory change. Acute cholecystitis is considered unlikely, however if clinically suspected, right
upper quadrant ultrasound may be helpful.
2. Mild fecal retention suggestive of constipation. No CT evidence of intestinal obstruction.
3. Left-sided nephrolithiasis without hydronephrosis. Stones have increased in size compared to prior CT dated 11/21/2021.
US Abdomen Complete/Upper:
1. Multiple gallstones are seen within the gallbladder neck. Gallbladder is mildly dilated. No significant gallbladder wall thickening, and negative sonographic Gunn's sign. Overall, findings are not suggestive of acute cholecystitis, however
symptomatic biliary colic may still be present. HIDA scan may be helpful if the diagnosis is in doubt clinically.
2. No biliary ductal dilation.
3. Pancreas, spleen, and abdominal vessels were not visualized due to overlying bowel gas, however were within normal limits on today's CT.
Procedure findings :
Robot assisted laparoscopic cholecystectomy with cholangiogram:
Tensely distended hydropic gallbladder with patchy gangrene, cholangiogram with good opacification of biliary tree and duodenum without filling defects (some bubbles are noted).
RF Operative Cholangiogram:
Small filling defects at the junction of the cystic duct remnant and common bile duct, which could represent air bubbles or small stones. The intrahepatic bile ducts and the common hepatic duct are not opacified. The remainder of the common bile
duct is opacified with contrast passing into the duodenum.
Discharge Plan
-
Patient Disposition: Detention/SNF
Discharge Diagnosis/Procedures: Acute Cholecystitis
Robotic Laparoscopic Cholecystectomy
Condition: Good
Diet: Low Cholesterol
Activity: As tolerated
Driving Restrictions: As prior to admission
Bathing Restrictions: OK to Shower
Wound Care: Allow skin glue to flake off on its own
Instructions: Cholecystectomy - Discharge instructions
Referrals:
Bry Nava DO [Family Provider] -
Emerson Caballero MD [Active] - in two to four weeks
Additional Discharge Medication Instructions: RESUME taking Eliquis on 11/27/2024.
Use extra strength tylenol and ibuprofen, alternating, every few hours. Maximum 4x daily with each. Always take ibuprofen with food.
Prescriptions:
Continued
albuterol sulfate 1 PUFF HFA aerosol inhaler
2 puff inhalation R Q4HPRN PRN (Reason: SOB, wheezing) Qty: 1 0RF
acetaminophen 325 MG tablet
650 mg PO Q4HPRN PRN (Reason: mild pain) Qty: 1 0RF
cyclobenzaprine 10 mg Tablet
10 mg PO HS
atorvastatin [Lipitor] 10 mg Tablet
10 mg PO HS
ondansetron HCl 8 mg Tablet
8 mg PO Q6HPRN PRN (Reason: nausea)
levothyroxine [Synthroid] 25 mcg Tablet
12.5 mcg PO HS
magnesium hydroxide [Milk of Magnesia] 400 mg/5 mL Suspension
2,400 mg PO DAILYPRN PRN (Reason: if no bm by 3rd day)
amitriptyline 10 mg Tablet
5 mg PO DAILY
bisacodyl [Dulcolax (bisacodyl)] 10 mg Suppository
10 mg AR DAILYPRN PRN (Reason: if no bm aftr mom)
pantoprazole [Protonix] 40 mg Tablet,Delayed Release (Dr/Ec)
40 mg PO HS
losartan 25 mg Tablet
12.5 mg PO DAILY
Fleet Enema 19-7 gram/118 mL Enema
118 ml AR DAILYPRN PRN (Reason: if no bm aftr dulcolax)
gabapentin 300 mg Capsule
300 mg PO BID
ammonium lactate 12 % Cream
1 applic TOPICAL BID
bupropion HCl [Wellbutrin XL] 150 mg Tablet Extended Release 24 Hr
150 mg PO DAILY
diclofenac sodium 1 % Gel
0 g TOPICAL QID
diclofenac sodium 1 % Gel
0 g TOPICAL BIDPRN MDD 32g PRN (Reason: left hip)
Held
Eliquis 5 MG tablet
5 mg PO BID Qty: 60 0RF
Hold Instructions: Resume on 11/27/24.
Discharge Orders:
Discharge Patient (As Directed); Ordered 11/26/24
Ordered By: Anthony Baker
Discharge Date and Time
Discharge Date/Time: 11/26/24 16:27
Print Language: PORTUGUESE

Documented by User: Zeyad Otoole MD 11/26/24 22:48
Discharge Summary
Discharge Data
Date of Admission: 11/23/24
Date of Discharge: 11/26/24
Discharge Plan
-
Patient Disposition: Detention/SNF
Discharge Diagnosis/Procedures: Acute Cholecystitis
Robotic Laparoscopic Cholecystectomy
Condition: Good
Diet: Low Cholesterol
Activity: As tolerated
Driving Restrictions: As prior to admission
Bathing Restrictions: OK to Shower
Wound Care: Allow skin glue to flake off on its own
Instructions: Cholecystectomy - Discharge instructions
Referrals:
Bry Nava DO [Family Provider] -
Emerson Caballero MD [Active] - in two to four weeks
Additional Discharge Medication Instructions: RESUME taking Eliquis on 11/27/2024.
Use extra strength tylenol and ibuprofen, alternating, every few hours. Maximum 4x daily with each. Always take ibuprofen with food.
Prescriptions:
Continued
albuterol sulfate 1 PUFF HFA aerosol inhaler
2 puff inhalation R Q4HPRN PRN (Reason: SOB, wheezing) Qty: 1 0RF
acetaminophen 325 MG tablet
650 mg PO Q4HPRN PRN (Reason: mild pain) Qty: 1 0RF
cyclobenzaprine 10 mg Tablet
10 mg PO HS
atorvastatin [Lipitor] 10 mg Tablet
10 mg PO HS
ondansetron HCl 8 mg Tablet
8 mg PO Q6HPRN PRN (Reason: nausea)
levothyroxine [Synthroid] 25 mcg Tablet
12.5 mcg PO HS
magnesium hydroxide [Milk of Magnesia] 400 mg/5 mL Suspension
2,400 mg PO DAILYPRN PRN (Reason: if no bm by 3rd day)
amitriptyline 10 mg Tablet
5 mg PO DAILY
bisacodyl [Dulcolax (bisacodyl)] 10 mg Suppository
10 mg AR DAILYPRN PRN (Reason: if no bm aftr mom)
pantoprazole [Protonix] 40 mg Tablet,Delayed Release (Dr/Ec)
40 mg PO HS
losartan 25 mg Tablet
12.5 mg PO DAILY
Fleet Enema 19-7 gram/118 mL Enema
118 ml AR DAILYPRN PRN (Reason: if no bm aftr dulcolax)
gabapentin 300 mg Capsule
300 mg PO BID
ammonium lactate 12 % Cream
1 applic TOPICAL BID
bupropion HCl [Wellbutrin XL] 150 mg Tablet Extended Release 24 Hr
150 mg PO DAILY
diclofenac sodium 1 % Gel
0 g TOPICAL QID
diclofenac sodium 1 % Gel
0 g TOPICAL BIDPRN MDD 32g PRN (Reason: left hip)
Held
Eliquis 5 MG tablet
5 mg PO BID Qty: 60 0RF
Hold Instructions: Resume on 11/27/24.
Discharge Orders:
Discharge Patient (As Directed); Ordered 11/26/24
Ordered By: Anthony Baker
Discharge Date and Time
Discharge Date/Time: 11/26/24 16:27
Print Language: [place]
== END 2024-11-26 16:27 | DRG 854 ==
LOC: 4 WEST ACU 13:52
PROVIDERS: Physician Assistant; Registered Nurse; Surgery; ADMITTING PHYSICIAN Internal Medicine; ATTENDING PHYSICIAN Family Medicine; CONSULT PHYSICIAN Surgery; EMERGENCY PHYSICIAN Emergency Medicine; FAMILY PHYSICIAN Family Medicine
PROC: 0FT44ZZ Resection of Gallbladder, Percutaneous Endoscopic Approach (ICD-10-PCS; 2024-11-25)
PROC: 8E0W4CZ Robotic Assisted Procedure of Trunk Region, Percutaneous Endoscopic Approach (ICD-10-PCS; 2024-11-25)
PROC: BF111ZZ Fluoroscopy of Biliary and Pancreatic Ducts using Low Osmolar Contrast (ICD-10-PCS; 2024-11-25)
DX: A41.9 Sepsis, unspecified organism (principal); I96 Gangrene, not elsewhere classified; K80.00 Calculus of gallbladder with acute cholecystitis without obstruction; K82.1 Hydrops of gallbladder; Z68.41 Body mass index [BMI] 40.0-44.9, adult; E03.9 Hypothyroidism, unspecified; G62.9 Polyneuropathy, unspecified; I10 Essential (primary) hypertension; K21.9 Gastro-esophageal reflux disease without esophagitis; Z86.718 Personal history of other venous thrombosis and embolism; F41.9 Anxiety disorder, unspecified; F90.9 Attention-deficit hyperactivity disorder, unspecified type; E66.9 Obesity, unspecified; F32.A Depression, unspecified; M19.90 Unspecified osteoarthritis, unspecified site; Z79.01 Long term (current) use of anticoagulants; Z79.899 Other long term (current) drug therapy; Z80.3 Family history of malignant neoplasm of breast
CPT/HCPCS: 88304; 74177; 74300; 76000; 76700; 80053; 83605; 83690; 85025; 85027; 87040; 87070; 93005; 96374; 96375; 97163; 97167; 97530; 99285; A4300; Q9967